=== PATIENT | female | born 1955 | race Caucasian/White ===

== ENCOUNTER 2022-10-02 08:39 | Day surgery (SDC) | payer MEDICARE, OTHER ==
[~2022-10-02] VITALS: Ht 157.5 cm; Wt 89.3 kg
[2022-10-02] MEDS ORDERED: RIZA10TA28 (09:10)
[2022-10-02] MEDS ORDERED: PROP10TA10 PO (09:10)
[2022-10-02 09:45] VITALS: BP 156/80
[2022-10-02] MEDS ORDERED: LIDOcaine 1% 30ml preserv. free vial ONE (10:03)
[2022-10-02 10:37] VITALS: BP 138/70
[2022-10-02 10:50] VITALS: BP 129/53
[2022-10-02 11:05] VITALS: BP 145/67
[2022-10-02 11:20] VITALS: BP 128/72
[2022-10-02 11:50] VITALS: BP 152/64
[2022-10-02 13:19] LABS: GLUCOSE,CSF 67 MG/DL (40-75); TOTAL PROTEIN,CSF 68 MG/DL (30-60)
[2022-10-02 13:50] LABS: APPEARANCE,CSF CLEAR; CSF RBC 0 /CU MM (0); CSF SUPERNATANT COLOR COLORLESS; CSF VOLUME 17 ML; CSF WBC CT 0 /CU MM (0-5); TUBE# COUNTED 3
[2022-10-03 10:00] LABS: IMMUNOGLOBULIN G, QN, SERUM 841 mg/dL (586-1602)
[2022-10-04 20:49] LABS: CRYPTOCOCCUS ANTIGEN, CSF Negative (Negative)
[2022-10-05 11:13] LABS: ANGIOTESIN-CONVERTING ENZYME 29 U/L (14-82)
[2022-10-05 16:39] LABS: CSF WEST NILE VIRUS, IGG Negative (Negative); CSF WEST NILE VIRUS, IGM Negative (Negative)
== END 2022-10-02 12:40 | disposition home or self-care (01) ==
LOC: SSTAY O 08:39
PROVIDERS: ATTEND Nurse Practitioner Family
DX: R42 Dizziness and giddiness (principal); G43.909 Migraine, unspecified, not intractable, without status migrainosus; G24.3 Spasmodic torticollis; M54.81 Occipital neuralgia; G47.33 Obstructive sleep apnea (adult) (pediatric); I69.30 Unspecified sequelae of cerebral infarction; Z98.890 Other specified postprocedural states; Z98.51 Tubal ligation status; Z88.8 Allergy status to other drugs, medicaments and biological substances; Z79.899 Other long term (current) drug therapy
CPT/HCPCS: 36415; 62328; 82040; 82042; 82164; 82784; 82945; 83873; 83916; 84157; 86592; 86617; 86788; 86789; 87015; 87070; 87102; 87116; 87206; 87529; 87798; 87899; 89051; J3490; 77002; 88108

== ENCOUNTER 2022-10-29 00:44 | Emergency (ER) | payer MEDICARE, OTHER ==
[~2022-10-29] VITALS: Ht 157.5 cm; Wt 86.4 kg
[~2022-10-29 00:44] MED LIST: PROP10TA10 PO; RIZA10TA28
[2022-10-29 01:07] LABS: BASOPHILS % (AUTO) 0.7 % (0-1); EOSINOPHILS # (AUTO) 0.1 X10'3 (0-0.9); EOSINOPHILS % (AUTO) 1.6 % (0-6); HEMATOCRIT 37.6 % (35.0-45.0); HEMOGLOBIN 13.2 g/dl (12.0-16.0); LYMPHOCYTES # (AUTO) 1.6 X10'3 (1.1-4.8); LYMPHOCYTES % (AUTO) 26.8 % (21-51); MEAN CORPUSCULAR HEMOGLOBIN 32.1 PG (27.0-31.0); MEAN CORPUSCULAR HGB CONC 35.1 g/dL (33.0-36.5); MEAN CORPUSCULAR VOLUME 91.4 FL (78-98); MEAN PLATELET VOLUME 7.4 FL (7.4-10.4); MONOCYTES # (AUTO) 0.5 X10'3 (0-0.9); MONOCYTES % (AUTO) 9.1 % (2-12); NEUTROPHILS # (AUTO) 3.7 X10'3 (1.8-7.7); NEUTROPHILS % (AUTO) 61.8 % (42-75); PLATELET COUNT 196 X10'3 (140-440); RED BLOOD COUNT 4.12 X10'6 (4.20-5.60); RED CELL DISTRIBUTION WIDTH 12.3 % (11.5-14.5); WHITE BLOOD COUNT 5.9 X10'3 (4.5-11.0)
[2022-10-29] MEDS ORDERED: ondansetron/PF 4mg/2ml inj IV ONE (01:15)
[2022-10-29] MEDS ORDERED: meclizine 12.5mg tablet PO ONE (01:15)
[2022-10-29 01:22] LABS: ALANINE AMINOTRANSFERASE 32 U/L (12-78); ALBUMIN 3.8 G/DL (3.4-5.0); ALBUMIN/GLOBULIN RATIO 1.1 (1.1-1.5); ALKALINE PHOSPHATASE 91 IU/L (46-116); ANION GAP 10 (8-16); ASPARTATE AMINO TRANSFERASE 25 U/L (10-37); BILIRUBIN,TOTAL 0.2 MG/DL (0.1-1.0); BLOOD UREA NITROGEN 15 MG/DL (7-18); BUN/CREATININE RATIO 22.1 (10.0-20.0); CHLORIDE 103 MMOL/L (99-107); CREATININE 0.68 MG/DL (0.40-0.90); GLUCOSE 113 MG/DL (70-104); POTASSIUM 3.9 MMOL/L (3.5-5.1); SODIUM 140 MMOL/L (135-145); TOTAL CARBON DIOXIDE 27.2 MMOL/L (24-32); TOTAL PROTEIN 7.2 G/DL (6.4-8.2); eGFR 86 ML/MIN
[2022-10-29 01:29] LABS: MAGNESIUM 2.2 MG/DL (1.5-2.4)
[2022-10-29 01:55] VITALS: BP 132/65
--- NOTE | 2022-10-29 01:55 | NUR ---
NEURO TELE ON LINE Q AND A WITH PATIENT AT THIS TIME
[2022-10-29 02:44] LABS: CLARITY,URINE CLEAR (Clear); COLOR,URINE STRAW (Yellow); GLUCOSE, URINE NEGATIVE (Neg); KETONES,URINE NEGATIVE (Neg); LEUKOCYTE ESTERASE ,URINE NEGATIVE (Neg); NITRITES, URINE NEGATIVE (Neg); OCCULT BLOOD,URINE NEGATIVE (Neg); PH,URINE 6.5 (4.8-8.0); PROTEIN,URINE NEGATIVE (Neg); UROBILINOGEN,URINE 0.2 E.U/dL (0.2-1.0)
[2022-10-29 02:50] LABS: UA COLLECTION TYPE CLN CATCH MIDSTREAM
[2022-10-29] MEDS ORDERED: ONDA8TAB13 PO (03:04)
[2022-10-29] MEDS ORDERED: MECL-231 PO (03:04)
== END 2022-10-29 03:20 | disposition home or self-care (01) ==
LOC: ER 00:45
DX: H81.399 Other peripheral vertigo, unspecified ear (principal); Z88.6 Allergy status to analgesic agent; Z79.899 Other long term (current) drug therapy; Z79.1 Long term (current) use of non-steroidal anti-inflammatories (NSAID); Z79.2 Long term (current) use of antibiotics
CPT/HCPCS: 36415; 71045; 80053; 81003; 83735; 83880; 84145; 84484; 85025; 93005; 96374; 99285; J2405; J8597